=== PATIENT | female | born 1980 | race Caucasian/White ===

== ENCOUNTER 2017-03-25 09:39 | Emergency (ER) | payer OTHER ==
[2017-03-25 09:55] VITALS: BP 143/65; PULSE 90; RESP 18; TEMP 98.5
[2017-03-25] MEDS ORDERED: HYDROmorphone 0.5 MG/0.5 ML SYRINGE IM STA (10:20)
--- NOTE | 2017-03-25 10:33 | ED ---
Skin/Abscess/FB HPI - General Chief complaint: Skin/Abscess/Foreign Body Stated complaint: abscess rt breast Time Seen by Provider: 03/25/17 10:04 Source: patient, RN notes reviewed Mode of arrival: ambulatory Limitations: no limitations - History of Present Illness Initial comments: This is a 36 year old female who presents with a chief complaint of right breast abscess. The patient is currently breast feeding. She states this issue has been ongoing for 3 weeks. She has been treated with three different antibiotics including Keflex, Dicloxacillin, and an intramuscular injection of an antibiotic which she could not recall the name of. Her banking consultant recommended warm compresses to promote draining, but this did not resolve the symptoms. The patient was prescribed Toradol to relieve the pain, but she states that this has not helped her pain. She denies fever. - Related Data Home Medications Medication Instructions Recorded Confirmed ALPRAZolam [Xanax] 0.25 mg PO DAILY PRN 03/25/17 03/25/17 Ketorolac [Toradol] 10 mg PO Q8HR PRN 03/25/17 03/25/17 Allergies Allergy/AdvReac Type Severity Reaction Status Date / Time No Known Allergies Allergy Verified 03/25/17 10:04 Review of Systems ROS Statement: Those systems with pertinent positive or pertinent negative responses have been documented in the HPI. ROS Other: All systems not noted in ROS Statement are negative. Past Medical History Past Medical History: No Reported History History of Any Multi-Drug Resistant Organisms: None Reported Past Surgical History: Section Past Psychological History: Anxiety Smoking Status: Former smoker Past Alcohol Use History: Occasional Past Drug Use History: None Reported General Exam Limitations: no limitations General appearance: alert, in no apparent distress Head exam: Present: atraumatic, normocephalic, normal inspection Extremities exam: Present: normal inspection, full ROM. Absent: tenderness, pedal edema, joint swelling, calf tenderness Neurological exam: Present: alert, oriented X3, CN II-XII intact Psychiatric exam: Present: normal affect, normal mood Skin exam: Present: warm, dry, intact, normal color, other (There is an erythematous, firm, warm abscess that is approximately 3 inches in diameter with poorly defined margins located on the right upper medial breast. The margins spare the nipple and areola.). Absent: rash Course Vital Signs 02/16/18 09:50 Temperature 98.5 F Pulse Rate 90 Respiratory 18 Rate Blood Pressure 143/65 O2 Sat by Pulse 100 Oximetry Procedures - Incision & Drainage Consent Obtained: verbal consent Indication: Right breast abscess Site: other (Right breast) Size (cm): 3 Anesthetic Used: lidocaine 1% Amount (mLs): 8 I&D Cleaning Method: Chloroprep Scalpel Used: #11 Needle Aspiration Performed?: Yes I&D Drainage Obtained: Pus Culture Obtained?: Yes Patient Tolerated Procedure: well, no complications Medical Decision Making - Medical Decision Making 36-year-old female presented from for right breast abscess. Patient had an I&D in the emergency department had relief of some of her symptoms. Patient continue her antibiotics as directed. She'll continue warm compresses and have her recheck within 48 hours. Disposition Clinical Impression: Abscess of right breast Disposition: HOME SELF-CARE Condition: Stable Instructions: Abscess (ED), Abscess Incision and Drainage (ED) Additional Instructions: Please return to the Emergency Department if symptoms worsen or any other concerns. Referrals: Mauro Fleming MD [Primary Care Provider] - 1-2 days Time of Disposition: 11:14
== END 2017-03-25 12:00 | disposition home or self-care (01) ==
LOC: EC 09:39
DX: N61.1 Abscess of the breast and nipple (principal); Z87.891 Personal history of nicotine dependence
CPT/HCPCS: 87070; 87205; 99283; 10060; 96372; J1170; 87077; 87186

== ENCOUNTER → 2017-04-11 | Outpatient (CLI) | payer OTHER ==
--- NOTE | 2017-04-13 10:23 | USB ---
Reason for exam: clinical finding. Physical Findings: Nurse Summary: 2cm firm lump, redness, warn to touch right breast 3 o'clock (nurse mj). US Breast RT Right breast ultrasound includes all four quadrants, the retroareolar region and axilla. Finding demonstrates a 3.9 x 1.9 x 3.9cm solid, hypoechoic lesion at 3 o'clock BB. This appears complex and could relate to internal debris however given recurrence/non-healing may be solid. Aspiration with possible convert to biopsy is recommended. These results were verbally communicated with the patient and result sheet given to the patient on 04/11/17. ASSESSMENT: Suspicious, BI-RAD 4 RECOMMENDATION: Ultrasound core biopsy of the right breast. (The patient should be made aware of the risk of milk fistual. Called Dr. Moeller with mammographic findings. Right breast aspiration/core biopsy scheduled for 04/18/17 at 12:20. PRELIMINARY REPORT CALLED AND FAXED TO DR. MOELLER ON 04/13/17.
== END | disposition home or self-care (01) ==
LOC: RADUSWWP 15:25
PROVIDERS: ATTEND Surgery
DX: N61.1 Abscess of the breast and nipple (principal)

== ENCOUNTER → 2017-04-18 | Day surgery (SDC) | payer OTHER ==
[2017-04-18 11:41] VITALS: RESP 16; BMI 28.3
[2017-04-18 13:01] VITALS: BP 103/66; PULSE 68; TEMP 98.5
--- NOTE | 2017-04-18 13:22 | USB ---
EXAMINATION TYPE: US breast aspiration single RT DATE OF EXAM: 04/18/2017 COMPARISON: 04/11/2017 CLINICAL HISTORY: R92.8 Abnormal mammogram. Nonhealing right breast abscess. TECHNIQUE/PROCEDURE: Informed consent was obtained from the patient with additional risk of milk fist anastasia discussed as the patient is currently breast-feeding. Preprocedural timeout was performed. Maximal barrier technique was utilized. The skin overlying a suitable path to the complex fluid josiah ection at 3:00 within the right breast at zone BC was localized with ultrasound and the overlying ski n prepped and draped. 10 cc of lidocaine buffered with bicarbonate was used for local anesthesia. A ccess was gained under direct ultrasound guidance to the fluid with an 18-gauge spinal needle. Ultras ound was utilized using sterile technique. 15 cc of purulent fluid was withdrawn. No sizable fluid co llection remained. Biopsy marker clip was placed at the site of aspiration. No immediate complication and the patient remained in stable condition. IMPRESSION: Successful ultrasound-guided right breast abscess drainage with preprocedural dimensions of 3.9 x 1.9 x 3.9 cm and no significant fluid collection remaining post procedurally. Samples were sent to the laboratory for analysis including culture and cytology.
== END ==
LOC: RADUSWWP 11:19
PROVIDERS: ATTEND Surgery
DX: N61.1 Abscess of the breast and nipple (principal); R92.8 Other abnormal and inconclusive findings on diagnostic imaging of breast
CPT/HCPCS: 88108; 88305; 76942; 19000; A4648; J2001

== ENCOUNTER → 2017-06-16 | Outpatient (CLI) | payer OTHER ==
[2017-06-16 12:18] VITALS: BP 113/69; TEMP 98; BMI 29.2
--- NOTE | 2017-06-16 12:55 | P.PN ---
Progress Note - Text Progress Note Date: 06/16/17 Patient is a 36-year-old white female status post I&D of an abscess in the right breast. She has been packing the area and states that the depth has decreased dramatically. She continues to breast-feed her child with no difficulty. She has not had any fever or chills. The area continues to heal and the patient will continue present therapy. Physical examination. The area of concern is approximately 2 cm x 1 cm in size. It is very superficial. Patient is going to continue present therapy will follow up in 2 months.
== END ==
LOC: WWCWWP 11:35
PROVIDERS: ATTEND Surgery
DX: Z09 Encounter for follow-up examination after completed treatment for conditions other than malignant neoplasm (principal)